=== PATIENT | female | born 1965 | race Caucasian/White ===

== ENCOUNTER 2018-07-15 15:50 | Emergency (ER) | payer BC, SELFPAY ==
[2018-07-15 15:51] VITALS: BP 132/81; PULSE 84; RESP 18; TEMP 37.1; O2SAT 100; BMI 30.8
--- NOTE | 2018-07-15 16:10 | CT_ITS ---
STUDY: CT ORBITS WITH CONTRAST REASON FOR EXAM: Female, 53 years old. I pain and swelling x3 days RADIATION DOSAGE (If Supplied By Facility): CTDIvol = ( 29.35 ) mGy, DLP = ( 356.46 ) mGycm TECHNIQUE: The patient was scanned in a multi detector CT scanner. Transaxial imaging was performed following the intravenous administration of 100mL ml of Isovue 300 contrast material. Sagittal and coronal images were reconstructed. # of Images: 335 Individualized dose optimization techniques were used for this CT. COMPARISON: None. FINDINGS: Normal globes. Normal intraconal spaces. Normal optic nerve sheath complex. Normal bilateral extraocular muscles. Normal lacrimal glands. Normal bilateral medial and inferior orbital chery. Normal bilateral maxillary bones. Normal bilateral frontozygomatic arches. Normal bilateral zygomatic temporal arches. Normal frontal sinus. Normal ethmoidal sinuses. Normal maxillary sinuses. Normal sphenoid sinuses. Normal soft tissue structures. There is no demonstrated abnormal enhancement. There is a small punctate focus of air just anterior to the right ocular globe. Of unknown clinical significance. No evidence of pre- or postseptal abscess CT/Orb Sella Post Fossa Ear W/CON IMPRESSION: No acute findings. No evidence of abscess. Punctate focus of air as above, nonspecific Electronically Signed: Bin Jimenez DO at 16:55 EDT Tel , Service support ,
[2018-07-15] MEDS: Fluorescein 1 MG STRIP 1 STRIP RIGHT EYE (17:28)
[2018-07-15] MEDS: Tetracaine 0.5% Ophthalmic Bottle 1 DRP RIGHT EYE (17:29)
--- NOTE | 2018-07-15 17:30 | ED.RN ---
ORDERED BLOOD DRAWN FROM PT THROUGH PATENT IV D/T LAB STATING THAT INITIAL SET OF LABS WERE NOT RECEIVED IN THE TUBE SYSTEM.
[2018-07-15 17:35] LABS: Absolute Neutrophil Count 4.3 X10^3/uL (2.0-7.7); Basophil# 0.02 X10^3/uL; Basophil% 0.3 % (0-1); Eosinophil# 0.12 X10^3/uL; Eosinophils% 1.6 % (0-5); Hematocrit 37.4 % (37-47); Hemoglobin 12.3 g/dl (12.0-15.0); Lymphocyte % 33.4 % (19-41); Mean Corp Hgb Conc 32.9 g/gl (32-36); Mean Corpuscular Hgb 32.7 pg (27.0-32.0); Mean Corpuscular Volume 99.5 fL (81-99); Mean Platelet Vol. 9.9 fl (6.2-12.0); Monocyte# 0.51 X10^3/uL; Monocyte% 6.8 % (0-10); Neutrophil # 4.33 X10^3/uL (2.7-7.7); Neutrophil % 57.8 % (47-70); POSITIVE COUNT NO; POSITIVE DIFFERENTIAL NO; POSITIVE MORPHOLOGY NO; Platelet Count 247 K/mm3 (150-450); RBC Distribution Width CV 12.8 % (11.6-14.6); RBC Distribution Width SD 46.6 fl (35.1-43.9); Red Blood Count 3.76 M/mm3 (4.2-5.4); White Blood Count 7.5 K/mm3 (4.4-11.0)
[2018-07-15 17:40] LABS: Anion Gap 5 (5-15); BUN 12 mg/dL (7-18); BUN/Creat Ratio 14.5 RATIO (10-20); Calcium,Total 8.3 mg/dL (8.5-10.1); Chloride 106 mmol/L (98-107); Creatinine, Serum 0.82 mg/dL (0.55-1.02); EST Glomerular Filtration Rate 78 mL/min (>60); Est Glom Filt Rate - Afr Amer 94 mL/min (>60); Estimated Creatinine Clearance 67.14 ml/min; Glucose 89 mg/dL (74-106); Potassium 3.7 mmol/L (3.5-5.1); Sodium Level 140 mmol/L (136-145)
--- NOTE | 2018-07-15 17:44 | ED.VISSUMM ---
- ER Visit Summary Date of Service: 07/15/18 Chief Complaint: Periorbital swelling and right eye pain. History of Present Illness: The patient is a 53 F who presents with eye complaints. Over the last 3 days she initially noted swelling around both eyes. She then developed aching right eye pain and photophobia and tearing and watering from the right eye. She also complains of a headache. She does not use contacts or glasses. She does not recall any injury. She denies any congestion rhinorrhea fevers nausea vomiting. [facility] and then was advised to be evaluated here in the emergency department. Physical Examination: Afebrile vitals are normal Visual acuity 20/40 right eye, 20/25 left eye, 20/40 both eyes, Patient does have bilateral periorbital edema she does not have any significant erythema to suggest periorbital cellulitis Anterior chambers deep and quiet Pupils are equally round and reactive to light and accommodation Extraocular motion is intact without any palsy Funduscopic examination limited by myosis No foreign body visualized Slit-lamp examination with floor seen does show some scattered dye uptake diffusely in the right cornea consistent with keratitis I do not appreciate any dendritic lesions There is no vesicular facial rash Heart regular rate and rhythm Lungs clear Test Results: Slit-lamp examination as above. CT of the orbit shows no acute findings. CBC BMP unremarkable. Emergency Department Course and Treatment: Patient's symptoms were somewhat unusual and that she had bilateral periorbital edema with also right eye complaints of photosensitivity aching pain and blurred vision. I did obtain a CT of the orbits this shows no pre-or post septal abscess. I do not believe she has facial cellulitis, post septal cellulitis. This may be allergic in nature with some associated keratitis. We will placed on ophthalmic antibiotics. Patient will be referred to ophthalmology. She was advised on supportive care. She understands to return for new or worsening symptoms. She was discharged to follow-up as an outpatient. Treatment Plan: [] Disposition: Discharge Impression: Periorbital edema Keratitis This note was generated with [employer] dictation software. It may contain incorrect words, spelling, and punctuation that were not noted in review of the chart prior to signing ED Disposition - Plan for ED Patient: Chief Complaint: Eye Problem Referrals: [facility] Doctor,Out of [Primary Care Provider] -
--- NOTE | 2018-07-15 17:50 | DCINST.ED_ITS ---
ED Disposition - Plan for ED Patient: Chief Complaint: Eye Problem Referrals: [facility] Doctor,Out of [Primary Care Provider] - Duc Rowe MD [STAFF PHYSICIAN] - Additional Instructions: You were seen today for swelling around your eyes. This can be due to many xuan sons. You also have some inflammation and irritation of the front part of your right eye. Use antibiotics as instructed. If you develop new or worsening symptoms he should return here to the emergency department for reevaluation. Follow-up with ophthalmology.
== END 2018-07-15 18:07 | disposition home or self-care (01) ==
LOC: ED 16:24
PROVIDERS: Emergency Provider Emergency Medicine
DX: R60.9 Edema, unspecified (principal); H16.9 Unspecified keratitis
CPT/HCPCS: 70481; 80048; 85025; 99283; Q9967; A4216

== ENCOUNTER 2024-12-24 06:29 | Day surgery (SDC) | payer OTHER, SELFPAY ==
--- NOTE | 2024-12-24 06:40 | PCM.PRE.AN2 ---
ASA Classification* ASA Classification ASA Classification: 2 Assessment & Plan Anesthesia* Anesthesia Assessment Anesthesia Assessment: Discussed sedation and/or anesthesia options, risks, benefits, and alternatives with patient/parents/legal guardian/POA. Questions invited. The patient/parents/legal guardian/POA seems to understand and agrees to proceed with anesthesia plan. Reviewed the physical assessment, medical history, allergy history and patient home medications list prior to surgery/procedure/anesthetic and documented any changes. Performed airway and anesthesia risk assessments. Anesthesia Type Anesthesia Type: MAC Anesthesia Focused Assessment* Airway Assessment Mouth opens: >3 cm Mallampati Score: II Focused Labs Anesthesia Preop lab: CBC WBC 7.5 K/mm3 (4.4-11.0) 07/15/18 17:23 07/15/18 RBC 3.76 M/mm3 (4.2-5.4) L 07/15/18 17:23 07/15/18 Hgb 12.3 g/dl (12.0-15.0) 07/15/18 17:23 07/15/18 Hct 37.4 % (37-47) 07/15/18 17:23 07/15/18 Plt Count 247 K/mm3 (150-450) 07/15/18 17:23 07/15/18 CHEMISTRY Potassium 3.7 mmol/L (3.5-5.1) 07/15/18 17:23 07/15/18 Sodium 140 mmol/L (136-145) 07/15/18 17:23 07/15/18 BUN 12 mg/dL (7-18) 07/15/18 17:23 07/15/18 Creatinine 0.82 mg/dL (0.55-1.02) 07/15/18 17:23 07/15/18 Glucose 89 mg/dL (74-106) 07/15/18 17:23 07/15/18 COAG Pre-Assessment Diagnosis/Proposed Procedure Planned Operative Procedure(s): CSCOPE OA Anesthesia History Anesthesia History - sleeve turner: Anesthesia History - sleeve turner Hx Hospitalization No 12/21/24 11:32 Any Problems With Anesthesia No 12/21/24 11:32 Cholinesterase deficiency No 12/21/24 11:32 You/Your Family Experience No 12/21/24 11:32 fever (hyperthermia) with Relationship Recent Exposure to Contagious Disease Does patient have nerve No 12/21/24 11:32 stimulator Patient instructed to have device shut off --Does patient have Pacemaker or ICD? When Was Last Pacemaker Check QUESTION #4 FULL TEXT: You/Your Family Experience fever (hyperthermia) with Anesthesia Last Oral Intake Last Oral intake: Last Oral Intake NPO since Meds taken in AM with sips of water? Meds patient instructed to take am of surgery PONV PONV - sleeve turner: PONV - sleeve turner Female Yes 12/21/24 11:32 HX of Motion Sickness No 12/21/24 11:32 HX of N/V After Surgery No 12/21/24 11:32 Non-Smoker Yes 12/21/24 11:32 Duration of Surgery greater No 12/21/24 11:32 than 60 minutes Number of Risk Factors 2 12/21/24 11:32 PONV Score Moderate Risk 12/21/24 11:32 Height & Weight Height & Weight: Anesthesia: Height & Weight Height 5 ft 3.5 in 11/12/24 08:20 Respiratory Assessment Respiratory Assessment - sleeve turner: Respiratory Tract Infection Hx - sleeve turner Hx Respiratory Tract Infection No 12/21/24 11:32 STOP Sleep Apnea STOP Sleep Apnea - sleeve turner: STOP Sleep Apnea - sleeve turner Hx Hypertension No 12/21/24 11:32 Hx Sleep Apnea No 12/21/24 11:32 CPAP BIPAP Do you snore loudly (louder No 12/21/24 11:32 than talking or can be heard Do you often feel tired/ No 12/21/24 11:32 fatigued/ sleepy during daytime? Has anyone observed you stop No 12/21/24 11:32 breathing during sleep? STOP Results Negative 12/21/24 11:32 QUESTION #5 FULL TEXT : Do you snore loudly (louder than talking or can be heard through closed doors)? 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 Specify any problems Hx of Preganancy in last 3 No 12/21/24 11:32 Months Nurse Filling Out Transfusion DSCHRIBER 12/21/24 11:32 & Questions: Date: 12/21/24 12/21/24 11:32 Time: 11:34 12/21/24 11:32 Patient unable to answer at this time (ie. confused, unrespo /Reproduction History /Reproductive History - sleeve turner: /Reproductive Hx- sleeve turner Hx Now No 12/21/24 11:32 Gestational Age (in weeks): EDC: Hx Hx Para Hx Section SAB No 12/21/24 11:32 PFSH Medical History Post-menopausal Cancer Alcohol use Arthritis Back pain Non-smoker History of anal lesion Hypothyroid Anxiety Family history of malignant neoplasm of colon in relative diagnosed when younger than 50 years of age Family history of colon cancer in father Home Medications ?Medication ?Instructions ?Recorded ?Last Taken ?Type levothyroxine 100 mcg tablet 100 mcg PO DAILY HYPOTHYROIDISM 07/15/18 07/15/18 History 100 MCG ascorbic acid 30 mg-collagen, 1 tab PO QDAY 11/12/24 Unknown History hydrolyzed 833.3 mg tablet (Collagen Skin Renewal) cholecalciferol (vitamin D3) 50 50 mcg PO QDAY 11/12/24 Unknown History mcg (2,000 unit) capsule clonazepam 0.5 mg tablet 0.5 mg PO Q8H PRN anxiety 11/12/24 Unknown History senna-fennel tablet (Natural 1 tab PO QWEEK PRN constipation 11/12/24 Unknown History Vegetable Laxative tablet) Allergy/AdvReac Type Severity Reaction Status Date / Time No Known Allergies Allergy Verified 12/24/24 06:40 Family History Father Diabetes Heart disease Hypertension Colon cancer In his 60's Sister Colon cancer In her late 40's Surgical History Hx of tonsillectomy Hx of section History of cholecystectomy H/O gastric sleeve Hx of colonoscopy Social History household members: other details: 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
[2024-12-24 06:54] VITALS: BP 126/84; PULSE 57; RESP 17; TEMP 36.4; O2SAT 100; BMI 31.0
--- NOTE | 2024-12-24 07:28 | H&P.OPEN ---
[facility] - General General Date of Service: 12/24/24 [facility] Narrative RANDY LONGORIA, is a 59 F who presents for screening colonoscopy due to family history of colon cancer as well as history of colon polyps. Patient's last colonoscopy was [address] Lind. Patient's father was diagnosed in the 60s and sister in her 40s with colon cancer. Patient has bowel movements every other day, does take laxatives about once a week?denies any blood. Patient denies any chronic abdominal pain/nausea/vomiting/reflux. Patient also had squamous cell excised perianal in the no issues with that since. [facility] Medical History (Updated 12/24/24 @ 07:[address] Lolita Wall MD) Post-menopausal Cancer Alcohol use Arthritis Back pain Non-smoker History of anal lesion Hypothyroid Anxiety Family history of malignant neoplasm of colon in relative diagnosed when younger than 50 years of age Family history of colon cancer in father Home Medications ?Medication ?Instructions ?Recorded ?Last Taken ?Type levothyroxine 100 mcg tablet 100 mcg PO DAILY HYPOTHYROIDISM 07/15/18 12/23/24 History ascorbic acid 30 mg-collagen, 1 tab PO QDAY 11/12/24 12/23/24 History hydrolyzed 833.3 mg tablet (Collagen Skin Renewal) cholecalciferol (vitamin D3) 50 50 mcg PO QDAY 11/12/24 12/23/24 History mcg (2,000 unit) capsule clonazepam 0.5 mg tablet 0.5 mg PO Q8H PRN anxiety 11/12/24 Unknown History senna-fennel tablet (Natural 1 tab PO QWEEK PRN constipation 11/12/24 Unknown History Vegetable Laxative tablet) Allergy/AdvReac Type Severity Reaction Status Date / Time No Known Allergies Allergy Verified 12/24/24 06:44 Family History Father Diabetes Heart disease Hypertension Colon cancer In his 60's Sister Colon cancer In her late 40's Surgical History Hx of tonsillectomy Hx of section History of cholecystectomy H/O gastric sleeve Hx of colonoscopy Social History household members: other details: 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 Smoking Status: Never smoker substance use type: does not use Past Medical/Surgical History Planned Operation Planned Operative Procedure(s): CSCOPE OA Previous Hospitalizations/Surgeries HX Hospitalizations: No Any Problems With Anesthesia: No You/Your Family Experience Fever (Hyperthermia) With Anes: No Cholinesterase deficiency: No Cardiovascular Hx Hypertension: No Respiratory Hx Chronic Obstructive Pulmonary Disease (COPD): No Hx Asthma: No Hx Emphysema: No Hx Sleep Apnea: No Hx Respiratory Tract Infection/Cold (presently): No Do You Snore Loudly (louder than talking or can be heard): No Do You Often Feel Tired/ Fatigued/ Sleepy Dring Daytime?: No Has Anyone Observed You Stop Breathing During Sleep?: No Result (for STOP score): Negative Smoking Status: Never smoker Neurological Does patient have nerve stimulator: No Reproduction : No Psycho/Social Hx Anxiety: Yes Miscellaneous Recent Exposure to Contagious Disease: No Allergies No Known Allergies Allergy (Verified 12/24/24 06:44) Discharge Is Pt Admitted From a Correction, or a [facility]: No After D/C, Where Do you Plan to Go: Return Home Vital Signs Vital Signs Vital Signs: 12/24/24 06:54 12/24/24 06:54 Temperature 97.6 F L Temperature Source Temporal Pulse Rate 57 L Respiratory Rate 17 Respiratory Pattern Normal Blood Pressure 126/84 H Blood Pressure Mean 98 Blood Pressure Source Monitor Blood Pressure Position Semi-Fowlers Blood Pressure Location Left Arm Pulse Ox 100 Oxygen Delivery Method Room Air Weight Weight: 175 lb 0.752 oz Body Mass Index (BMI) 31.0 Physical Exam Const alert, oriented x3 and no apparent distress HEENT normocephalic and head/scalp atraumatic Resp normal respiratory effort Cardio regular rate GI soft to palpation and non-tender; Negative for non-distended Palpation: Negative for guarding Extremity no clubbing, cyanosis or edema Skin no rashes or lesions noted Neuro CN's II-XII intact bilaterally Psych mental status grossly normal Assessment & Plan Assessment/Plan (1) Family history of malignant neoplasm of colon in relative diagnosed when younger than 50 years of age: (2) Hx of colonic polyp: Surgery Risks - Colonoscopy I discussed with the patient the risks of the procedure: Yes Risks Include but are not Limited To: Risks include but are not limited to: Bleeding, perforation requiring further surgery, inability to complete colonoscopy requiring barium enema.
[2024-12-24 08:22] VITALS: BP 100/71; BP 126/84; PULSE 59; RESP 16; TEMP 36.1; O2SAT 100
--- NOTE | 2024-12-24 08:24 | OP.COLON_ITS ---
Patient Name: Carla Yoder Procedure Date: 12/24/2024 7:53 AM Date of : 1965 Age: 59 Procedure: Colonoscopy Indications: Screening in patient at increased risk: Colorectal cancer in father before age 60, Screening in patient at increased risk: Colorectal cancer in sister before age 60, High risk colon cancer surveillance: Personal history of colonic polyps Providers: Lolita Wall MD Medicines: Monitored Anesthesia Care Patient Profile: This is a 59 year old female. Last Colonoscopy: 8 years ago. Complications: No immediate complications. Procedure: Pre-Anesthesia Assessment: - Prior to the procedure, a History and Physical was performed, and patient medications and allergies were reviewed. The patient's tolerance of previous anesthesia was also reviewed. The risks and benefits of the procedure and the sedation options and risks were discussed with the patient. All questions were answered, and informed consent was obtained. Prior Anticoagulants: The patient has taken no anticoagulant or antiplatelet agents. ASA Grade Assessment: Per anesthesia. After reviewing the risks and benefits, the patient was deemed in satisfactory condition to undergo the procedure. After I obtained informed consent, the scope was passed under direct vision. Throughout the procedure, the patient's blood pressure, pulse, and oxygen saturations were monitored continuously. The Colonoscope was introduced through the anus and advanced to the cecum, identified by the appendiceal orifice, ileocecal valve and palpation. The colonoscopy was performed without difficulty. The patient tolerated the procedure well. The quality of the bowel preparation was good. Scope In: 8:03:05 AM Scope Withdrawal Time 0 hours 11 minutes 9 seconds Scope Out: 8:18:36 AM Total Procedure Duration Time 0 hours 15 minutes 31 seconds Findings: Hemorrhoids were found on perianal exam. Non-bleeding internal hemorrhoids were found. The hemorrhoids were Grade I (internal hemorrhoids that do not prolapse). The entire examined colon appeared normal. Impression: - Hemorrhoids found on perianal exam. - Non-bleeding internal hemorrhoids. - The entire examined colon is normal. - No specimens collected. Recommendation: - Discharge patient to home. - Resume previous diet. - Continue present medications. - Repeat colonoscopy in 5 years for screening purposes. Procedure Code(s): --- Professional --- G0105, PT, Colorectal cancer screening; colonoscopy on individual at high risk Diagnosis Code(s): --- Professional --- Z80.0, Family history of malignant neoplasm of digestive organs Z86.010, Personal history of colonic polyps K64.0, First degree hemorrhoids CPT copyright 2021 [employer]. All rights reserved. The codes documented in this report are preliminary and upon track patrol review may be revised to meet current compliance requirements. MD Lolita Fine MD 12/24/2024 8:23:34 AM This report has been signed electronically. Number of Addenda: 0 Note Initiated On: 12/24/2024 7:53 AM
--- NOTE | 2024-12-24 08:24 | OP.CCLET_ITS ---
12/24/2024 [facility] Re : Colonoscopy procedure for Carla Recee This procedure was performed on Tuesday, December 24, 2024. My impressions and recommendations are as follows: Impressions : - Hemorrhoids found on perianal exam. - Non-bleeding internal hemorrhoids. - The entire examined colon is normal. - No specimens collected. Recommendations : - Discharge patient to home. - Resume previous diet. - Continue present medications. - Repeat colonoscopy in 5 years for screening purposes. My findings are described in the full procedure note, which is enclosed. If I can be of further assistance, please feel free to contact me at Doctor phone number(s): , Work: . Sincerely, MD Lolita Fine MD 12/24/2024 8:23:34 AM This report has been signed electronically.
[2024-12-24 08:25] VITALS: BP 107/67; BP 126/84; PULSE 62; RESP 16; O2SAT 100
--- NOTE | 2024-12-24 08:26 | PCM.POST.ANE ---
Anesthesia: Postop Eval I Current Vital Signs Temperature: 97 F Pulse Rate: 67 Blood Pressure: 100/71 Respiratory Rate: 16 Pulse Ox: 100 Oxygen Delivery Method: Room Air Assessment Airway patent: Yes Spontaneous unlabored respirations: Yes Mental status: Awake and Calm nausea: No Vomiting: No Anesthesia Complication: No Fluid Hydration Crystalloid volume administer (ml): 45 Total IV fluid infused: 45 Progress Note Anesthesia document: Postop Eval 1 completed: Yes
[2024-12-24 08:27] VITALS: BP 100/71; PULSE 67; RESP 16; TEMP 36.1; O2SAT 100
--- NOTE | 2024-12-24 08:29 | PCM.POSTANE2 ---
Anesthesia Postop Eval I Sum Postop Eval Completion status Anesthesia document: Postop Eval 1 completed: Yes Anesthesia Postop Eval I Summary Anesthesia Postop Eval I Summary: Anesthesia Postop Eval I: Assessment Summary Airway patent Yes 12/24/24 08:27 [email or web address] Spontaneous unlabored Yes 12/24/24 08:27 [email or web address] respirations Mental status Awake,Calm 12/24/24 08:27 [email or web address] nausea No 12/24/24 08:27 [email or web address] Vomiting No 12/24/24 08:27 [email or web address] Anesthesia Postop Eval I: Fluid Summary Crystalloid volume administer 45 12/24/24 08:27 [email or web address] (ml) Colloids volume administered ( ml) Blood Product volume administered (ml) Total IV fluid infused 45 12/24/24 08:27 [email or web address] Anesthesia Postop Eval I: Summary Notes Anesthesia Complication No 12/24/24 08:27 [email or web address] Anesthesia Complication Comment: Post-operative progress note Anesthesia: Postop Eval II Evaluation Mental status: Awake Pain Level: 0 nausea: No Vomiting: No
[2024-12-24 08:35] VITALS: BP 108/72; BP 126/84; PULSE 54; RESP 16; TEMP 36.1; O2SAT 99
[2024-12-24 08:50] VITALS: BP 126/84
== END 2024-12-24 08:51 | disposition home or self-care (01) ==
LOC: EN 06:34 → AC 06:35
PROVIDERS: PCP Family Medicine; Referring Provider Family Medicine; Visit Provider Surgery
PROC: 0DJD8ZZ Inspection of Lower Intestinal Tract, Via Natural or Artificial Opening Endoscopic (ICD-10-PCS; CPT 45378; principal; 2024-12-24 07:25)
DX: Z12.11 Encounter for screening for malignant neoplasm of colon (principal); Z80.0 Family history of malignant neoplasm of digestive organs; K64.0 First degree hemorrhoids; Z86.0100 Personal history of colon polyps, unspecified; Z85.828 Personal history of other malignant neoplasm of skin; E03.9 Hypothyroidism, unspecified; Z79.890 Hormone replacement therapy; Z79.899 Other long term (current) drug therapy; F41.9 Anxiety disorder, unspecified; Z90.49 Acquired absence of other specified parts of digestive tract; K64.4 Residual hemorrhoidal skin tags
CPT/HCPCS: 45378; A4216; J2405

== ENCOUNTER → 2025-03-25 | Outpatient (CLI) | payer OTHER, SELFPAY ==
--- NOTE | 2025-03-25 15:04 | ART_ITS ---
Reason For Study Reason For Study: R/O Thoracic outlet syndrome Procedure A bilateral upper extremity continuous wave Doppler with analog waveform analysis and segmental pressures. Thoracic outlet protocol performed. Left Segmental Pressures Left brachial= 118mmHg. Left ulnar= 128mmHg. Left radial= 133mmHg. Left digit = 116 mmHg. The left radial waveforms are triphasic. The left ulnar waveforms are triphasic. Right Segmental Pressures Right brachial= 123mmHg. Right ulnar= 132mmHg. Right radial= 134mmHg. Right digit = 118 mmHg. The right radial waveforms are triphasic. The right ulnar waveforms are triphasic. Indices The wrist-brachial index by the radial artery is 1.09. The wrist-brachial index by the ulnar artery is 1.07. The right digital-brachial index is 0.96. The wrist-brachial index by the radial artery is 1.08. The wrist-brachial index by the ulnar artery is 1.04. The left digital-brachial index is 0.94. VL/Upper Extremity Arterial Study Interpretation Summary Right wrist-brachial index 1.09, normal. Digit index and Doppler/PVR waveforms of the right arm normal at rest. Right arm waveforms mildly diminished in symptomatic position. Left wrist-brachial index 1.08, normal. Digit index and Doppler/PVR waveforms o f the left arm normal at rest. Left arm waveforms mildly diminished in symptomatic position. Ordering Physician: Zenaida Grant Referring Physician: Yandy Arenas Performed By: Kelly mAos RVT
== END | disposition home or self-care (01) ==
LOC: CVS 15:02
PROVIDERS: PCP Family Medicine; Referring Provider Physician Assistant; Visit Provider Physician Assistant
DX: G54.0 Brachial plexus disorders (principal)
CPT/HCPCS: 93923